=== PATIENT | male | born 1950 | race African-American/Black ===

== ENCOUNTER 2017-09-11 08:49 | Outpatient (CLI) | payer OTHER ==
--- NOTE | 2017-09-19 14:31 | Nuclear Medicine Report ---
NUCLEAR MEDICINE WHOLE-BODY BONE SCAN: 09/11/17 09:06:00 CLINICAL: Followup prostate cancer with metastases. COMPARISON: 08/21/16 TECHNIQUE: 25 millicuries technetium 99m MDP was injected intravenously and whole body scans were obtained at 3 hours. FINDINGS: Extensive uptake in calvarium, ribs, shoulders, spine, pelvic bones and hips as seen on the previous exam. Many lesions are not significantly changed compared to the prior exam. However, skull lesions are smaller and less numerous, several rib lesions demonstrate less intense uptake.Paradoxically, greater uptake in the right proximal femur at the hip on the current exam. Little renal uptake. Normal uptake in soft tissues. IMPRESSION: Extensive skeletal metastasis with some improvement in calvarial and rib lesions compared to the prior exam. However, many spine and pelvic lesions are stable and there is paradoxical increased uptake in the right femur.
== END 2017-09-11 08:50 | disposition home or self-care (01) ==
LOC: NM 08:49
DX: C79.51 Secondary malignant neoplasm of bone (principal); C61 Malignant neoplasm of prostate
CPT/HCPCS: 78306; A9503

== ENCOUNTER 2017-10-16 09:38 | Outpatient (CLI) | payer OTHER, MEDICARE ==
[2017-10-16 10:35] LABS: Blood Urea Nitrogen 15 mg/dL (9-20)
--- NOTE | 2017-10-16 12:25 | Cat Scan Report ---
CT LOWER EXTREMITY RIGHT WITH CONTRAST History: Right leg pain. Technique: Helical CT following IV contrast. Sagittal and coronal reformatted images. Findings: There are too many to count blastic bony lesions throughout the sacrum, right hemipelvis and proximal right femur. These are consistent with the patient's known history of prostate cancer. There is no evidence for displaced fracture or femoral head necrosis. No dislocation. Soft tissue structures in the right lower extremity are unremarkable. IMPRESSION: Numerous blastic bony lesions are identified throughout the pelvis and proximal right femur consistent with metastatic prostate cancer. No pathologic fracture is detected.
== END 2017-10-16 09:39 | disposition home or self-care (01) ==
LOC: CT 09:38
DX: M89.9 Disorder of bone, unspecified (principal); M79.604 Pain in right leg; Z85.46 Personal history of malignant neoplasm of prostate
CPT/HCPCS: 36415; 73701; 82565; 84520; Q9967

== ENCOUNTER 2018-02-11 08:28 | Outpatient (CLI) | payer MEDICARE ==
[2018-02-11 09:18] LABS: Blood Urea Nitrogen 17 mg/dL (9-20)
--- NOTE | 2018-02-11 10:14 | Cat Scan Report ---
CT RIGHT LOWER EXTREMITY WITH CONTRAST: 02/11/18 CLINICAL: Prostate cancer with bone metastases and right leg pain. COMPARISON: 10/16/17 TECHNIQUE: Volumetric acquisition and 0.625 and 2.5 mm axial reconstructions after the uneventful intravenous injection of 100 cc of Omnipaque-300. Consent was obtained prior to administration of contrast. FINDINGS: Diffuse blastic metastasis involving the pelvic bones and the right acetabulum. Blastic metastases of the proximal right femur involving the femoral head and femoral neck. No fracture or dislocation. The soft tissues are normal. No mass or enhancing lesion. No joint effusion. No lymphadenopathy. 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 No significant change compared to the prior exam. No new explanation for pain.
== END 2018-02-11 08:29 | disposition home or self-care (01) ==
LOC: CT 08:28
DX: C61 Malignant neoplasm of prostate (principal); C79.51 Secondary malignant neoplasm of bone; M79.604 Pain in right leg
CPT/HCPCS: 36415; 73701; 82565; 84520; Q9967

== ENCOUNTER 2018-02-13 08:21 | Outpatient (CLI) | payer MEDICARE ==
--- NOTE | 2018-02-13 12:19 | Nuclear Medicine Report ---
BONE SCAN: History: Prostate cancer, bone metastasis. Comparison: Bone scan dated 08/21/16. CT lower extremity right with contrast dated 02/11/18. After injection of isotope, gamma camera imaging of the bony system was done. Bone scan again demonstrates numerous areas of abnormal increased radiotracer uptake throughout the calvarium, spine, shoulders, rib cage, pelvis and proximal femurs. Little change is appreciated since the comparison bone scan. There are, however, a few new bony lesions in the right femoral shaft and proximal left humerus which now demonstrate increased uptake. IMPRESSION: Diffuse metastatic disease as described. There are approximately 3 or 4 new areas of uptake in the right femoral shaft and left humerus.
== END 2018-02-13 08:22 | disposition home or self-care (01) ==
LOC: NM 08:21
DX: C79.51 Secondary malignant neoplasm of bone (principal); C61 Malignant neoplasm of prostate
CPT/HCPCS: 78306; A9503